=== PATIENT | male | born 1975 | race Caucasian/White ===

== ENCOUNTER 2021-05-09 07:40 | Emergency (ER) | payer SELFPAY ==
[2021-05-09 07:50] VITALS: BP 168/128
[2021-05-09] MEDS ORDERED: CLEOCIN HCL300 MG PO (08:09)
== END 2021-05-09 08:19 | disposition home or self-care (01) ==
LOC: ED 07:40
DX: K04.7 Periapical abscess without sinus (principal)

== ENCOUNTER 2021-06-09 15:49 | Emergency (ER) | payer SELFPAY ==
[~2021-06-09] VITALS: Ht 175.3 cm; Wt 70.5 kg
[~2021-06-09 15:49] MED LIST: CLEOCIN HCL300 MG PO
[2021-06-09] MEDS ORDERED: MIXED AMPHETAMI10 M1 PO (16:22)
[2021-06-09 17:37] VITALS: BP 178/110
[2021-06-10] MEDS ORDERED: AMOXICILLIN AND1 TA2 PO (09:14)
== END 2021-06-09 17:39 | disposition home or self-care (01) ==
LOC: ED 15:49
DX: I10 Essential (primary) hypertension (principal); F15.10 Other stimulant abuse, uncomplicated; K08.89 Other specified disorders of teeth and supporting structures; F20.9 Schizophrenia, unspecified; F17.210 Nicotine dependence, cigarettes, uncomplicated

== ENCOUNTER 2021-06-10 01:16 | Emergency (ER) | payer SELFPAY ==
[~2021-06-10] VITALS: Ht 167.6 cm; Wt 70.5 kg
[~2021-06-10 01:16] MED LIST changes: +MIXED AMPHETAMI10 M1 PO
[2021-06-10 03:23] LABS: BASO # 0.07 K/mm3 (0.02-0.10); EOS # 0.01 K/mm3 (0.04-0.40); EOS % 0.1 % (0.0-4.0); HEMATOCRIT 42.9 % (42.0-52.0); HEMOGLOBIN 14.6 g/dL (13.5-18.0); LYMPH# 1.32 K/mm3 (1.50-4.00); MEAN CELL VOLUME 93 fl (78-100); MEAN CORPUSCULAR HEMOGLOBIN 32 pg (27-31); MEAN CORPUSCULAR HGB CONC 34 g/dL (33-37); MEAN PLATELET VOLUME 9.6 fl (7.4-10.4); MONO # 1.19 K/mm3 (0.20-0.80); NEU # 8.06 K/mm3 (1.40-6.50); PLATELET COUNT 289 K/mm3 (130-400); RED BLOOD COUNT 4.63 M/mm3 (4.20-5.60); RED CELL DISTRIBUTION WIDTH 13.3 % (11.5-14.5); WHITE BLOOD COUNT 10.7 K/mm3 (4.8-10.8)
[2021-06-10 03:35] LABS: ALBUMIN 3.7 g/dL (3.5-5.0); POTASSIUM 4.1 mmol/L (3.5-5.1)
[2021-06-10 03:36] LABS: CALCIUM 8.9 mg/dL (8.3-10.5)
[2021-06-10 03:38] LABS: TOTAL PROTEIN 6.4 g/dL (6.4-8.3)
[2021-06-10 03:39] LABS: TOTAL BILIRUBIN 1.5 mg/dL (0.2-1.2)
[2021-06-10 03:50] LABS: TROPONIN-I 0.051 ng/mL (<0.030)
[2021-06-10] MEDS ORDERED: AMOXICILLIN AND1 TA2 PO (09:14)
[2021-06-10 10:26] VITALS: BP 135/88
== END 2021-06-10 10:40 | disposition home or self-care (01) ==
LOC: ED 01:16
PROVIDERS: Family Medicine
DX: F41.1 Generalized anxiety disorder (principal); I10 Essential (primary) hypertension; F15.10 Other stimulant abuse, uncomplicated; K08.89 Other specified disorders of teeth and supporting structures; F20.9 Schizophrenia, unspecified; R77.8 Other specified abnormalities of plasma proteins; F17.210 Nicotine dependence, cigarettes, uncomplicated
CPT/HCPCS: J0696; J2060